=== PATIENT | female | born 1990 | race Hispanic/Latino ===

== ENCOUNTER 2020-02-07 20:01 | Emergency (ER) | payer BC, OTHER ==
[~2020-02-07] VITALS: Ht 157.5 cm; Wt 79.4 kg
== END 2020-02-07 23:25 | disposition home or self-care (01) ==
LOC: ED 20:01
DX: N83.202 Unspecified ovarian cyst, left side (principal); Z88.0 Allergy status to penicillin; Z88.8 Allergy status to other drugs, medicaments and biological substances
CPT/HCPCS: 74177; 80053; 81001; 83690; 85025; 99284-25